=== PATIENT | female | born 1990 | race Two or more races ===

== ENCOUNTER 2020-08-07 13:43 | Emergency (ER) | payer MEDICAID ==
[~2020-08-07] VITALS: Ht 154.9 cm; Wt 88.9 kg
[2020-08-07 13:57] VITALS: BP 119/76
== END 2020-08-07 16:07 | disposition left against medical advice (07) ==
LOC: ER 13:43
DX: H57.12 Ocular pain, left eye (principal); R51.9 Headache, unspecified; Z53.21 Procedure and treatment not carried out due to patient leaving prior to being seen by health care provider; W01.0XXA Fall on same level from slipping, tripping and stumbling without subsequent striking against object, initial encounter; Y93.89 Activity, other specified; Y92.89 Other specified places as the place of occurrence of the external cause; Y99.8 Other external cause status